=== PATIENT | male | born 2005 | race Caucasian/White ===

== ENCOUNTER 2024-08-18 21:43 | Emergency (ER) | payer OTHER, SELFPAY ==
--- NOTE | ~2024-08-18 | CT_ITS ---
Non-contrast Head CT History: Headache Technique: Axial non-contrast imaging of the brain was performed. Dose reduction technique was used on this scan by utilizing automated exposure control and iterative reconstruction technique. The dose -length product (DLP) was 605.33 mGy-cm. Findings: There is no evidence of intracranial hemorrhage, mass lesion, or acute infarct. Brain par enchyma appears normal. The ventricles and subarachnoid spaces are normal in size. The calvarium ap pears normal. The visualized paranasal sinuses and mastoid air cells are clear. Impression: No significant abnormality seen. Reviewed, dictated and finalized at location . Impression: No significant abnormality seen.
[2024-08-18 22:55] VITALS: BP 137/70; PULSE 65; RESP 14; TEMP 36.8; O2SAT 100
[2024-08-19 00:23] VITALS: BP 110/77; PULSE 58; RESP 16; TEMP 36.7; O2SAT 98
[2024-08-19 02:27] VITALS: BP 124/79; PULSE 61; RESP 14; TEMP 36.8; O2SAT 99
[2024-08-19] MEDS: dexAMETHasone SOD PHOS INJ 10 MG/ML 1 ML VIAL IV PUSH (02:30)
[2024-08-19] MEDS: diphenhydrAMINE HCl INJ 50 MG/ML VIAL IV PUSH (02:30)
[2024-08-19] MEDS: KETOROLAC 15 MG/ML VIAL (*BKC) IV PUSH (02:30)
[2024-08-19] MEDS: SODIUM CHLORIDE 0.9% IV 1,000 ML 999 ML IV CONT (02:31)
[2024-08-19] MEDS: MAGNESIUM SULF 1 GM/D5W 100 ML 1 GM/100 ML BAG IVPB (02:31)
[2024-08-19] MEDS: PROCHLORPERAZINE EDISYLATE 10 MG/2 ML VIAL IV PUSH (02:31)
[2024-08-19 02:45] LABS: Basophils Percent Auto 0.7 % (0.2-1.2); Eosinophils Absolute Auto 0.2 K/mm3 (0-0.3); Eosinophils Percent Auto 3.2 % (0-4.4); Hematocrit 40.7 % (42.0-52.0); Hemoglobin 14.2 g/dL (14.0-18.0); Immature Granulocyte Absolute 0.01 K/mm3 (0.00-0.031); Immature Granulocyte Percent A 0.2 % (0-0.5); Lymphocytes Absolute Auto 2.93 K/mm3 (0.9-3.2); Mean Corpuscular HGB Conc 34.9 g/dl (32-36); Mean Corpuscular Hemoglobin 31.1 pg (26-34); Mean Corpuscular Volume 89.1 fl (80-100); Mean Platelet Volume 11.6 fl (7.4-10.4); Monocytes Absolute Auto 0.6 K/mm3 (0.1-0.6); Monocytes Percent Auto 10.4 % (2.6-8.5); Neutrophils Absolute Auto 2.2 K/mm3 (1.3-6.7); Neutrophils Percent Auto 36.5 % (45.5-73.1); Platelet Count Result 148 k/mm3 (150-375); Red Blood Count 4.57 M/mm3 (4.6-6.20); Red Cell Distribution Width 11.9 % (11.5-14.5)
[2024-08-19 02:55] LABS: Alanine Aminotransferase 18 U/L (6-50); Albumin Level 3.9 g/dL (3.5-5.1); Alkaline Phosphatase 111 U/L (38-126); Anion Gap 5 mmol/L (4-12); Aspartate Amino Transferase 22 U/L (17-59); Bilirubin,Total 0.7 mg/dL (0.2-1.3); Blood Urea Nitrogen 14 mg/dL (9-20); Calcium 9.1 mg/dL (8.4-10.2); Carbon Dioxide 29 mmol/L (22-30); Chloride 102 mmol/L (98-107); Estimated CRCL calculation 131 ml/min; Estimated Glomerular Filt Rate > 60; Glucose 91 mg/dL (65-110); Potassium 4.1 mmol/L (3.4-5.0); Sodium 136 mmol/L (137-145)
[2024-08-19 03:24] LABS: Strep Group A RT-PCR NOT DETECTED (Negative)
[2024-08-19 03:35] LABS: Influenza A QL RT-PCR Negative (Negative); Influenza B QL RT-PCR Negative (Negative); RSV RNA, RT-PCR Negative (Negative); SARS-CoV-2 RNA PCR Negative (Negative)
--- NOTE | 2024-08-19 03:44 | ED.GENADULT ---
HPI - General Adult General Chief complaint: Headache Stated complaint: headache Time Seen by Provider: 08/19/24 02:07 History of Present Illness HPI narrative: Patient is a 19-year-old gentleman who presents emergency department chief complaint of headache acute patient reports that he started having headache yesterday reports he was seen in Urgent Care given a dose Toradol reports the headache and eye. Patient reports mild photophobia and reports had some nausea denies fever denies nuchal rigidity Related Data Allergies Allergy/AdvReac Type Severity Reaction Status Date / Time No Known Allergies Allergy Verified 08/18/24 22:05 Review of Systems Review of Systems: A 10 system review of systems was completed on the patient and is negative except for what is stated in the HPI. Nursing and ancillary documentation was reviewed. Exam Narrative: GENERAL: Well-appearing, well-nourished, and in no acute distress. HEAD: Normocephalic, atraumatic. EYES: PERRLA and EOMI. ENT: Nares clear, no rhinorrhea or epistaxis. Mucous membranes moist. NECK: Supple. CHEST: Clear to auscultation. No respiratory distress. HEART: Regular rate and rhythm. No murmur heard. Normal peripheral pulses. ABDOMEN: Soft, nontender, nondistended, normal active bowel sounds. EXTREMITIES: Normal range of motion. No edema. SKIN: Warm, dry, no rash. NEURO: No focal deficits. Alert and oriented x3. PSYCH: Normal mood and affect. Course Vital Signs Vital signs: Vital Signs Temperature 36.8 C 08/18/24 22:55 Pulse Rate 65 08/18/24 22:55 Respiratory Rate 14 08/18/24 22:55 Blood Pressure 137/70 08/18/24 22:55 Pulse Oximetry 100 08/18/24 22:55 Oxygen Delivery Room Air 08/18/24 22:55 Temperature 36.8 C 08/19/24 02:27 Pulse Rate 61 08/19/24 02:27 Respiratory Rate 14 08/19/24 02:27 Blood Pressure 124/79 08/19/24 02:27 Pulse Oximetry 99 08/19/24 02:27 Oxygen Delivery Room Air 08/18/24 22:55 Medical Decision Making [facility] Narrative Medical decision making narrative: Differential diagnosis includes migraine headache, viral illness, intracranial mass CT head showed no evidence of acute intracranial pathology laboratory studies were obtained showed no significant abnormality urinalysis was negative COVID flu RSV is negative strep was negative Patient received a migraine cocktail and is feeling much better Vital Signs Vital Signs: Vital Signs Temperature 36.8 C 08/18/24 22:55 Pulse Rate 65 08/18/24 22:55 Respiratory Rate 14 08/18/24 22:55 Blood Pressure 137/70 08/18/24 22:55 Pulse Oximetry 100 08/18/24 22:55 Oxygen Delivery Room Air 08/18/24 22:55 Temperature 36.8 C 08/19/24 02:27 Pulse Rate 61 08/19/24 02:27 Respiratory Rate 14 08/19/24 02:27 Blood Pressure 124/79 08/19/24 02:27 Pulse Oximetry 99 08/19/24 02:27 Oxygen Delivery Room Air 08/18/24 22:55 Lab Data 08/19/24 02:37 08/19/24 02:37 Labs: Lab Results 08/19/24 Range/Units 02:37 WBC 6.0 (4.5-10.0) K/mm3 RBC 4.57 L (4.6-6.20) M/mm3 Hgb 14.2 (14.0-18.0) g/dL Hct 40.7 L (42.0-52.0) % MCV 89.1 (80-100) fl MCH 31.1 (26-34) pg MCHC 34.9 (32-36) g/dl RDW 11.9 (11.5-14.5) % Plt Count 148 L (150-375) k/mm3 MPV 11.6 H (7.4-10.4) fl Immature Gran % (Auto) 0.2 (0-0.5) % Neut % (Auto) 36.5 L (45.5-73.1) % Lymph % (Auto) 49.0 H (18.3-44.2) % [place] % (Auto) 10.4 H (2.6-8.5) % Eos % (Auto) 3.2 (0-4.4) % Baso % (Auto) 0.7 (0.2-1.2) % Lymph # (Auto) 2.93 (0.9-3.2) K/mm3 [place] # (Auto) 0.6 (0.1-0.6) K/mm3 Eos # (Auto) 0.2 (0-0.3) K/mm3 Baso # (Auto) 0.0 (0.0-0.1) K/mm3 Abs Immat Gran (auto) 0.01 (0.00-0.031) K/mm3 Absolute Neuts (auto) 2.2 (1.3-6.7) K/mm3 Absolute Nucleated RBC 0.000 (0.0-0.012) K/mm3 Nucleated RBC % 0.0 (0.0-0.2) % Sodium 136 L (137-145) mmol/L Potassium 4.1 (3.4-5.0) mmol/L Chloride 102 (98-107) mmol/L Carbon Dioxide 29 (22-30) mmol/L Anion Gap 5 (4-12) mmol/L BUN 14 (9-20) mg/dL Creatinine 0.80 (0.7-1.3) mg/dL Estim Creat Clear Calc 131 ml/min Estimated GFR > 60 (59 - ) Glucose 91 (65-110) mg/dL Calcium 9.1 (8.4-10.2) mg/dL Total Bilirubin 0.7 (0.2-1.3) mg/dL AST 22 (17-59) U/L ALT 18 (6-50) U/L Alkaline Phosphatase 111 (38-126) U/L Total Protein 7.0 (6.3-8.2) g/dL Albumin 3.9 (3.5-5.1) g/dL Urine Color Yellow (Yellow) Urine Appearance Clear (Clear) Urine pH 6.0 (5.0-9.0) Ur Specific [place] 1.013 (1.001-1.035) Urine Protein Negative (Negative) mg/dL Urine Glucose (UA) Negative (Negative) mg/dL Urine Ketones Negative (Negative) mg/dL Ur Blood (Man) Negative (Negative) Urine Nitrate Negative (Negative) Urine Bilirubin Negative (Negative) Urine Urobilinogen 0.2 (<2.0) mg/dL Leukocyte Esterase Rfl Negative (Negative) DOUGIE/UL Influenza A (RT-PCR) Negative (Negative) Influenza B (RT-PCR) Negative (Negative) RSV (RT-PCR) Negative (Negative) SARS-CoV-2 RNA (RT-PCR) Negative (Negative) Group A Strep (PCR) Not detected (Negative) Discharge Plan Discharge Clinical Impression: Headache Patient Disposition: Home, Self-Care Condition: Stable Instructions: Antibiotic Form, Acute Headache (ED) Follow-up/Referrals: Arthur Brink MD [Physician] - PHYSICIAN,[employer] [Primary Care Provider] - Time of Disposition: 04:19
[2024-08-19 03:50] LABS: Add Urine Microscopic? NO; Appearance Urine Clear (Clear); Bilirubin Urine Negative (Negative); Blood Urine Negative (Negative); Color Urine Yellow (Yellow); Glucose Urine UA Negative (Negative); Ketones Urine Negative (Negative); Leukocyte Esterase Ur Negative LEU/UL (Negative); Nitrate Urine Negative (Negative); Protein Urine Negative (Negative); Specific Grav Ur 1.013 (1.001-1.035); Urobilinogen Urine 0.2 mg/dL (<2.0)
== END 2024-08-19 04:48 | disposition home or self-care (01) ==
PROVIDERS: Emergency Provider Emergency Medicine
DX: R51.9 Headache, unspecified (principal); Z20.822 Contact with and (suspected) exposure to COVID-19
CPT/HCPCS: 36415; 70450; 80053; 81003; 85025; 87637; 87651; 96365; 96366; 96375; 99284; J0780; J1100; J1200; J1885; J3475; J7030